=== PATIENT | female | born 1945 | race African-American/Black ===

== ENCOUNTER 2025-02-04 15:07 | Emergency (ER) | payer MEDICARE, OTHER ==
[~2025-02-04] VITALS: Ht 152.4 cm; Wt 60.0 kg
[2025-02-04] MEDS ORDERED: CLOPIDOGREL75 MG PO (15:26)
[2025-02-04] MEDS ORDERED: LIDOCAINE-PRILOC5 GM (15:26)
[2025-02-04] MEDS ORDERED: OMEPRAZOLE20 MG PO (15:26)
[2025-02-04] MEDS ORDERED: ACETAMINOPHEN 500 MG TAB PO ONE (17:45)
[2025-02-04 18:15] VITALS: BP 175/86
== END 2025-02-04 18:15 | disposition home or self-care (01) ==
LOC: ED 15:07
DX: S52.591A Other fractures of lower end of right radius, initial encounter for closed fracture (principal); W18.30XA Fall on same level, unspecified, initial encounter; R21 Rash and other nonspecific skin eruption; Z79.899 Other long term (current) drug therapy
CPT/HCPCS: 29125; 73110; 73130; 99283; A9270

== ENCOUNTER 2025-02-26 13:15 | Emergency (ER) | payer MEDICARE, OTHER ==
[~2025-02-26] VITALS: Ht 152.4 cm; Wt 51.5 kg
[~2025-02-26 13:15] MED LIST: CLOPIDOGREL75 MG PO; LIDOCAINE-PRILOC5 GM; OMEPRAZOLE20 MG PO
--- OUTSIDE RECORDS SUMMARY | 2025-02-26 13:21 | XMS ---
PreManage Notification: LUH HAIRSTON Security [employer] Data Analyst Events No recent Security Events currently on file CRITERIA MET - [facility] [place] - 2 Visits in 30 Days CARE PROVIDERS There are no care providers on record at this time. Sarah has no Care Guidelines for this patient. EAngeli V[facility] (12 MO.) [facility] NOTE: Visits indicate total known visits. ED/UCC VISIT TRACKING (12 MO.) 02/26/2025 13:15 [facility] TYPE: Emergency COMPLAINT: - RECTAL BLEEDING 02/04/2025 15:08 [facility] [place] TYPE: Emergency COMPLAINT: - FELL INJURED RIGHT WRIST DIAGNOSES: - Fall on same level, unspecified, initial encounter - Other fractures of lower end of right radius, initial encounter for closed fracture - Other cut off sawyer log (current) drug therapy - Pain in right wrist - Rash and other nonspecific skin eruption 02/27/2024 09:30 [facility] TYPE: Emergency DIAGNOSES: 1. Hypotension, unspecified 1. Weakness 2. End stage renal disease 3. Weakness INPATIENT VISIT TRACKING (12 MO.) No inpatient visits to display in this time frame [email or web address]
[2025-02-26] MEDS ORDERED: HYDRALAZINE HC100 MG PO (13:30)
[2025-02-26] MEDS ORDERED: METOPROLOL SUC100 MG PO (13:30)
[2025-02-26] MEDS ORDERED: ATORVASTATIN CA10 MG PO (13:30)
[2025-02-26] MEDS ORDERED: FUROSEMIDE40 MG PO (13:30)
[2025-02-26] MEDS ORDERED: RENA-VITE TABL0.8 MG PO (13:32)
[2025-02-26 13:33] LABS: BASOPHILS 0.4 % (0.1-1.2); EOSINOPHILS 0.4 % (0.7-5.8); LYMPHOCYTES 29.2 % (19.3-51.7); MCH 28.2 PG (25.6-32.2); MCHC 32.1 g/dL (32.2-35.5); MCV 87.8 fL (79.4-94.8); MONOCYTES 23.5 % (4.7-12.5); NEUTROPHILS 46.3 % (34.0-71.1); RBC 3.62 M/uL (3.93-5.22)
[2025-02-26 13:45] LABS: INR 1.12 (0.80-1.30); PROTIME 13.7 Sec (11.2-14.2)
[2025-02-26 13:50] LABS: ALT (SGPT) 24.0 U/L (14-59); AST (SGOT) 47.0 U/L (15-37); GLOMERULAR FILTRATION RATE,EST 3.0 mL/min (>60); PROTEIN, TOTAL 7.2 g/dL (6.4-8.2); UREA NITROGEN 63.0 mg/dL (7-18)
[2025-02-26 13:51] LABS: CORONAVIRUS COVID-19 AG POSITIVE (NEGATIVE)
[2025-02-26 14:10] LABS: ABO O
[2025-02-26 14:11] LABS: ANTIBODY SCREEN NEGATIVE; RH POSITIVE
[2025-02-26] MEDS ORDERED: VAZALORE81 MG PO (14:33)
[2025-02-26] MEDS ORDERED: LOSARTAN POTASS50 MG PO (14:33)
[2025-02-26] MEDS ORDERED: NIFEDIPINE ER60 MG PO (14:34)
[2025-02-26] MEDS ORDERED: REMDESIVIR 100 MG in SODIUM CHLORIDE 0.9% 230 ML IV SCH (14:54)
[2025-02-26] MEDS ORDERED: REMDESIVIR 200 MG in SODIUM CHLORIDE 0.9% 250 ML IV ONE (15:30)
[2025-02-26] MEDS ORDERED: KETOROLAC TROMETHAMINE 15 MG/ML VIAL IV ONE (16:30)
[2025-02-26 19:35] VITALS: BP 164/88
--- NOTE | 2025-02-26 22:12 | EKG ---
[facility] [address] [place] [id number] Signed Normal sinus rhythm T wave abnormality, consider anterior ischemia Prolonged QT Abnormal ECG No previous ECGs available Confirmed by Jaden Gómez MD () on 02/26/2025 10:12:23 PM Electronically Signed By: JADEN GÓMEZ MD 02/26/252211 PATIENT NAME: LUH HAIRSTON Electrocardiogram DATE OF : 41 PHYSICIAN: JADEN GÓMEZ MD REPORT #: [id number] REPORT IS CONFIDENTIAL AND NOT TO BE RELEASED WITHOUT AUTHORIZATION
== END 2025-02-26 19:35 | disposition short-term general hospital (02) ==
LOC: ED 13:15
PROVIDERS: Emergency Medicine
DX: U07.1 COVID-19 (principal); E87.5 Hyperkalemia; I13.0 Hypertensive heart and chronic kidney disease with heart failure and stage 1 through stage 4 chronic kidney disease, or unspecified chronic kidney disease; I50.9 Heart failure, unspecified; N17.9 Acute kidney failure, unspecified; N18.9 Chronic kidney disease, unspecified
CPT/HCPCS: 36415; 51798; 71045; 74176; 80053; 81001; 85025; 85610; 85730; 86850; 86900; 86901; 93005; 93010; 96365; 96375; 99285-25; J0248; J1885; J2405; J7050